=== PATIENT | female | born 1995 | race Caucasian/White ===

== ENCOUNTER 2016-03-11 19:49 | Emergency (ER) | payer BC ==
[~2016-03-11] VITALS: Ht 162.6 cm; Wt 52.4 kg
[2016-03-11 20:03] VITALS: TEMP 37.4; Ht 162.6 cm; Wt 52.4 kg
[2016-03-11] MEDS ORDERED: KETOROLAC TROMETHAMINE 30 MG/ML VIAL IV STA (21:38)
[2016-03-11] MEDS ORDERED: SODIUM CHLORIDE 0.9% 1000ML 1,000 ML IV ONE ×2 (21:45)
[2016-03-11] MEDS ORDERED: BCPILLS PO (21:46)
[2016-03-11] MEDS ORDERED: NRN600 PO (21:46)
[2016-03-11 22:03] LABS: BASO % 0.3 %; BASO ABS # 0.02 K/uL (0-0.2); COMPLETE YES; EOS % 0.2 %; IG% 0.3 %; LYMPH % 9.5 %; LYMPH ABS # 0.62 K/uL (1.2-3.4); MEAN CELL VOLUME 75.3 fL (80-100); MEAN CORPUSCULAR HEMOGLOBIN 24.7 pg (25-34); MEAN CORPUSCULAR HGB CONC 32.8 g/dl (32-36); MEAN PLATELET VOLUME 9.9 fL (7.4-10.4); MONO % 12.9 %; NEUT % 76.8 %; PLATELET COUNT 207 K/uL (130-400); RED BLOOD COUNT 4.25 M/uL (4.2-5.4); WHITE BLOOD COUNT 6.53 K/uL (4.8-10.8)
[2016-03-11 22:14] LABS: URINE APPEARANCE CLEAR (CLEAR); URINE BILIRUBIN NEG (NEG); URINE COLOR YELLOW; URINE NITRITE NEG (NEG); UROBILINOGEN NEG (NEG); ZZUR CULT IF INDIC CLEAN CATCH YES
[2016-03-11 22:19] LABS: MANUAL MICROSCOPIC REQUIRED? NO; REVIEW REQ? NO
[2016-03-11 22:22] LABS: CALCIUM 8.4 mg/dl (8.5-10.1)
[2016-03-11 22:25] LABS: ALB/GLOB RATIO 0.8 (0.9-2)
--- NOTE | 2016-03-11 22:32 | DIAGNOSTIC IMAGING REPORT ---
KUB MEDICAL HISTORY: Constipation. FINDINGS: 2 AP supine abdominal radiographs are obtained. No prior studies are available for comparison at the time of dictation. There is a nonobstructed abdominal bowel gas pattern noting moderate constipation. No evidence of intraperitoneal free air is seen. There are no abnormal abdominal calcifications. A presumed cholecystectomy clip projects over the right upper quadrant. The bony structures appear intact. The lung bases are clear as imaged. IMPRESSION: Nonobstructed abdominal bowel gas pattern noting moderate constipation. Electronically signed by: Conor Trevino M.D. 03/11/2016 10:30 PM Dictated Date/Time: 03/11/2016 10:29 PM
[2016-03-11] MEDS ORDERED: NITROFURANTOIN MONOHYDRATE 100 MG CAP PO STA (22:36)
[2016-03-11] MEDS ORDERED: OSELTAMIVIR PHOSPHATE 75 MG CAP PO ONE (22:45)
[2016-03-11] MEDS ORDERED: NITR-5 PO (22:56)
[2016-03-11] MEDS ORDERED: OSEL75CA12 PO (22:56)
[2016-03-11] MEDS ORDERED: DOCUSATE SODIUM 100 MG CAP PO ONE (23:00)
[2016-03-11 23:17] VITALS: BP 111/69; PULSE 103; O2SAT 98
--- NOTE | 2016-03-12 04:13 | EMERGENCY ROOM VISIT NOTE ---
History First contact with patient: 21:27 Chief Complaint: CONSTIPATION Stated Complaint: CONSTIPATION,HEADACHE,WEAKNESS Nursing Triage Summary: Pt complains of constipation for 2 weeks. Pt also reports headache, exhaution, and dizziness. History of Present Illness The patient is a 20 year old female who presents to the Emergency Room with multiple complaints. The patient states that she has had constipation symptoms for the past 2 weeks. She states that she is producing very small bowel movements since that time. She states that today she has developed generalized body aches, fatigue, lightheadedness, and headache. The patient does not believe she has had a fever, but has not taken her temperature. She is on control pills and denies chance of . She is a student at [employer] and has multiple possible exposures to disease. She considers herself usually healthy and rates her overall discomfort a 9/10. Review of Systems More than 10 systems were reviewed and otherwise negative with the exception of history of present illness. Past Medical/Surgical History No chronic medical disease Family History No pertinent family history Social History Smoking Status: Never Smoker Occupation Status: [employer] student Current/Historical Medications Scheduled Control Pills ( Control Pills), 1 TAB PO QPM Gabapentin (Gabapentin), 600 MG PO BID Nitrofurantoin Monohyd Macrocr (Macrobid), 100 MG PO BID Oseltamivir (Tamiflu), 75 MG PO BID Allergies Coded Allergies: No Known Allergies (Unverified , 03/11/16) Physical Exam Vital Signs Date Time Temp Pulse Resp B/P Pulse Ox O2 Delivery O2 Flow Rate FiO2 03/11/16 23:17 103 18 111/69 98 03/11/16 22:04 109 18 124/78 100 Room Air 03/11/16 20:03 37.4 90 16 133/86 98 Room Air Pain Rating (0-10): 5.0 Physical Exam VITALS: Vitals are noted on the nurse's note and reviewed by myself. Vital signs stable. GENERAL: Well-developed, well-nourished, generally ill-appearing female who is nontoxic. Patient is cooperative with the examination. HEAD: Normocephalic atraumatic. EARS: External ear normal. External auditory canals clear, tympanic membranes pearly colunga without erythema or effusion bilaterally. EYES: Pupils equal round and reactive to light and accommodation. Conjunctivae without injection, sclerae without icterus. Extraocular movements intact. NOSE: Patent, turbinates without inflammation or discharge. MOUTH: Mucous membranes moist. Tonsils are not enlarged. Pharynx without erythema, blood, or exudate. Uvula midline. Airway patent. NECK: Supple without nuchal rigidity. No lymphadenopathy. No thyromegaly. Cervical spine is nontender. HEART: Regular rate and rhythm without murmurs gallops or rubs. LUNGS: Clear to auscultation bilaterally without wheezes, rales or rhonchi. No retractions or accessory muscle use. ABDOMEN: Positive normal bowel sounds x 4. Soft, nontender, without masses or organomegaly. No guarding or rebound tenderness. MUSCULOSKELETAL: No muscle atrophy, erythema, or edema noted. Full range of motion without joint tenderness in all extremities. Medical Decision & Procedures ER Provider Diagnostic Interpretation: KUB MEDICAL HISTORY: Constipation. FINDINGS: 2 AP supine abdominal radiographs are obtained. No prior studies are available for comparison at the time of dictation. There is a nonobstructed abdominal bowel gas pattern noting moderate constipation. No evidence of intraperitoneal free air is seen. There are no abnormal abdominal calcifications. A presumed cholecystectomy clip projects over the right upper quadrant. The bony structures appear intact. The lung bases are clear as imaged. IMPRESSION: Nonobstructed abdominal bowel gas pattern noting moderate constipation. Laboratory Results 03/11/16 21:53 Red Blood Count 4.25, Mean Corpuscular Volume 75.3, Mean Corpuscular Hemoglobin 24.7, Mean Corpuscular Hemoglobin Concent 32.8, Mean Platelet Volume 9.9, Neutrophils (%) (Auto) 76.8, Lymphocytes (%) (Auto) 9.5, Monocytes (%) (Auto) 12.9, Eosinophils (%) (Auto) 0.2, Basophils (%) (Auto) 0.3, Neutrophils # (Auto ) 5.02, Lymphocytes # (Auto) 0.62, Monocytes # (Auto) 0.84, Eosinophils # (Auto ) 0.01, Basophils # (Auto) 0.02 03/11/16 21:53 Test 03/11/16 21:46 03/11/16 21:50 03/11/16 21:53 Urine Color YELLOW Urine Appearance CLEAR (CLEAR) Urine pH 6.0 (4.5-7.5) Urine Specific Boyce 1.020 (1.000-1.030) Urine Protein TRACE (NEG) Urine Glucose (UA) NEG (NEG) Urine Ketones NEG (NEG) Urine Occult Blood 1+ (NEG) Urine Nitrite NEG (NEG) Urine Bilirubin NEG (NEG) Urine Urobilinogen NEG (NEG) Urine Leukocyte Esterase MODERATE (NEG) Urine WBC (Auto) >30 /hpf (0-5) Urine RBC (Auto) 10-30 /hpf (0-4) Urine Hyaline Casts (Auto) 5-10 /lpf (0-5) Urine Epithelial Cells (Auto) 10-20 /lpf (0-5) Urine Bacteria (Auto) 2+ (NEG) Influenza Type A Antigen Neg for Influ A (NEG) Influenza Type B Antigen POS for Influ B (NEG) Urine Test NEG (NEG) White Blood Count 6.53 K/uL (4.8-10.8) Red Blood Count 4.25 M/uL (4.2-5.4) Hemoglobin 10.5 g/dL (12.0-16.0) Hematocrit 32.0 % (37-47) Mean Corpuscular Volume 75.3 fL (80-100) Mean Corpuscular Hemoglobin 24.7 pg (25-34) Mean Corpuscular Hemoglobin Concent 32.8 g/dl (32-36) Platelet Count 207 K/uL (130-400) Mean Platelet Volume 9.9 fL (7.4-10.4) Neutrophils (%) (Auto) 76.8 % Lymphocytes (%) (Auto) 9.5 % Monocytes (%) (Auto) 12.9 % Eosinophils (%) (Auto) 0.2 % Basophils (%) (Auto) 0.3 % Neutrophils # (Auto) 5.02 K/uL (1.4-6.5) Lymphocytes # (Auto) 0.62 K/uL (1.2-3.4) Monocytes # (Auto) 0.84 K/uL (0.11-0.59) Eosinophils # (Auto) 0.01 K/uL (0-0.5) Basophils # (Auto) 0.02 K/uL (0-0.2) RDW Standard Deviation 38.7 fL (36.4-46.3) RDW Coefficient of Variation 14.1 % (11.5-14.5) Immature Granulocyte % (Auto) 0.3 % Immature Granulocyte # (Auto) 0.02 K/uL (0.00-0.02) Anion Gap 13.0 mmol/L (3-11) Est Creatinine Clear Calc Drug Dose 74.9 ml/min Estimated GFR () 94.6 Estimated GFR (Non- 81.6 BUN/Creatinine Ratio 9.0 (10-20) Calcium Level 8.4 mg/dl (8.5-10.1) Total Bilirubin 0.2 mg/dl (0.2-1) Aspartate Amino Transf (AST/SGOT) 26 U/L (15-37) Alanine Aminotransferase (ALT/SGPT) 23 U/L (12-78) Alkaline Phosphatase 51 U/L (45-117) Total Protein 7.7 gm/dl (6.4-8.2) Albumin 3.4 gm/dl (3.4-5.0) Globulin 4.3 gm/dl (2.5-4.0) Albumin/Globulin Ratio 0.8 (0.9-2) Monoscreen NEG (NEG) Medications Administered Medications (Trade) Dose Ordered Sig/Alysha Route Start Time Stop Time Status Last Admin Dose Admin Sodium Chloride (Nss 1000ml) 1,000 ml @ 999 mls/hr Q1H1M ONCE IV 03/11/16 21:45 03/11/16 22:45 DC 03/11/16 21:45 999 MLS/HR Ketorolac Tromethamine (Toradol Inj) 30 mg NOW STAT IV 03/11/16 21:38 03/11/16 21:40 DC 03/11/16 21:38 30 MG Oseltamivir Phosphate (Tamiflu Cap) 75 mg NOW ONCE PO 03/11/16 22:45 03/11/16 22:46 DC 03/11/16 23:05 75 MG Nitrofurantoin Macrocrystals (Macrobid Cap) 100 mg NOW STAT PO 03/11/16 22:36 03/11/16 22:37 DC 03/11/16 23:05 100 MG Docusate Sodium (coLACE CAP) 100 mg NOW ONCE PO 03/11/16 23:00 03/11/16 23:01 DC 03/11/16 23:05 100 MG ED Course Physical exam and history were performed. Nursing notes and EMR were reviewed. Patient appears to have multiple complaints bring her to the emergency room today. Her primary presenting complaint is her fatigue and body aches. She additionally has had constipation for the past 2 weeks. She does not have an abdominal surgical history. IV access was established and labs were obtained. The patient was hydrated and medicated as above. X-ray was performed. The patient's blood work is as above and was reviewed. She does not have a significantly elevated white blood cell count. She is mildly anemic, and this is evidently chronic for her. She does not have a gross electrolyte imbalance. The patient's urine is concerning for a UTI, and she will be started on Macrobid for this. KUB shows moderate constipation, which was expected. There are no signs of obstructive process or other significant findings on plain films. Her influenza B swab did return positive, and based on the length of time of symptoms, I do believe this is why she has been feeling ill the past one day. The patient was started on Tamiflu here in the department. Overall the patient does appear stable for discharge home. She will be given a continuation course of Tamiflu and Macrobid. She was asked to follow with [facility] for further care and management. We discussed conservative measures regarding her constipation. I feel in the short-term considering that she has influenza B that a stool softener such as Colace is most appropriate. She may use MiraLAX sparingly. The patient is pleased with this plan of voiced understanding. She was otherwise invited back to the ER with any new, worsening, or concerning symptoms. The chart was completed utilizing [employer] Speech Voice Recognition Software. Grammatical errors, random word insertions, pronoun errors, and incomplete sentences are an occasional consequence of this system due to software limitations, ambient noise, and hardware issues. Any formal questions or concerns about the content, text, or information contained within the body of this dictation should be directly addressed to the provider for clarification. . Medical Decision Differential diagnosis: Etiologies such as viral syndrome, otitis, pharyngitis, pneumonia, influenza, meningitis, urinary tract infection, sepsis, bacteremia, as well as others were entertained. Impression Primary Impression: Influenza B Additional Impressions: UTI (urinary tract infection) Constipation Departure Information Dispostion Home / Self-Care Condition GOOD Prescriptions Nitrofurantoin Monohyd Macrocr (Macrobid) 100 Mg Cap 100 MG PO BID for 7 Days, #14 CAP Prov: Elbert Sanchez PA-C 03/11/16 Oseltamivir (Tamiflu) 75 Mg Cap 75 MG PO BID for 5 Days, #10 CAP Prov: Elbert Sanchez PA-C 03/11/16 Forms HOME CARE DOCUMENTATION FORM, School Instructions, Additional Instructions: Patient was seen and evaluated today in the emergency department fo medical care. Return to class on 03/17/2016. Please excuse. IMPORTANT VISIT INFORMATION Patient Instructions My [facility], Oseltamivir Phosphate Oral capsule Additional Instructions You were seen and evaluated today on an emergency basis only. This is not a substitute for, or an effort to provide, complete comprehensive medical care. It is not possible to recognize and treat all injuries or illnesses in a single emergency department visit. For this reason it is recommended that you followup with [facility] on Wednesday for a recheck of your condition. Take Macrobid 100 mg twice daily for the next 7 days for your UTI. Take Tamiflu 75 mg twice daily for the next 5 days for the Flu. For baseline pain relief you may alternate ibuprofen and acetaminophen every 4 hours for pain control. Take 600 mg ibuprofen (Advil) and then 4 hours later take 1000 mg acetaminophen (Tylenol). Do not take more than 3000 mg acetaminophen in a single day. Consider using [id number] Colace and [id number] MiraLAX to assist with bowel movements. Drink plenty of fluids and remain well hydrated. Slow sips over long periods of time will add up to a large amount of hydration. You are welcome to return to the emergency department anytime with new, worsening, or concerning symptoms. School Instructions Additional School Instructions: Patient was seen and evaluated today in the emergency department for medical care. Return to class on 03/17/2016. Please excuse. Problem Qualifiers
--- NOTE | 2016-03-13 11:58 | Pharmacy Progress Note ---
ED Pharmacist Culture FollowUp Date of Service: Mar 13, 2016. Patient was sent home with a prescription for Macrobid 100mg PO BID x 7 days, which should cover the E coli growing from the patient's URINE culture. No action required.
== END 2016-03-11 23:18 | disposition home or self-care (01) ==
LOC: C.EDB 19:53
DX: J10.1 Influenza due to other identified influenza virus with other respiratory manifestations (principal); N39.0 Urinary tract infection, site not specified; K59.00 Constipation, unspecified; Z79.3 Long term (current) use of hormonal contraceptives; Z79.899 Other long term (current) drug therapy